=== PATIENT | female | born 1995 | race Two or more races ===

== ENCOUNTER 2019-10-13 17:07 | Emergency (ER) | payer SELFPAY ==
[~2019-10-13] VITALS: Ht 152.4 cm; Wt 88.9 kg
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
[2019-10-13] MEDS ORDERED: ONDANSETRON 4 MG TAB.RAPDIS ONE (18:55)
[2019-10-13] MEDS ORDERED: KETOROLAC TROMETHAMINE INJ 30 MG/ML VIAL ONE (18:55)
[2019-10-13] MEDS ORDERED: HYDROCODONE/APAP 10/325MG 1 EA TABLET ONE (18:55)
[2019-10-13] MEDS ORDERED: ONDANSETRON 4 MG TAB.RAPDIS SL ONE (19:00)
[2019-10-13] MEDS ORDERED: KETOROLAC TROMETHAMINE INJ 60 MG/2 ML VIAL IM ONE (19:00)
[2019-10-13] MEDS ORDERED: HYDROCODONE/APAP 10/325MG 1 EA TABLET PO ONE (19:00)
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
--- NOTE | 2019-10-13 19:20 | NUR ---
bri at bedside for x-ray
[2019-10-13 20:34] VITALS: BP 135/81
--- NOTE | 2019-10-13 20:34 | NUR ---
Patient discharged to home in stable condition. Written and verbal after care instructions given. Patient verbalizes understanding of instruction.
== END 2019-10-13 20:34 | disposition home or self-care (01) ==
LOC: ER 17:09
DX: S16.1XXA Strain of muscle, fascia and tendon at neck level, initial encounter (principal); S20.212A Contusion of left front wall of thorax, initial encounter; S80.02XA Contusion of left knee, initial encounter; S70.12XA Contusion of left thigh, initial encounter; V49.49XA Driver injured in collision with other motor vehicles in traffic accident, initial encounter; Y93.89 Activity, other specified; Y92.413 State road as the place of occurrence of the external cause; Y99.8 Other external cause status
CPT/HCPCS: 71100; 71120; 73552; 73564; 84703; 96372; 99284; J1885; Q0162